=== PATIENT | male | born 2000 | race Caucasian/White ===

== ENCOUNTER 2024-08-01 02:46 | Emergency (ER) | payer BC, SELFPAY ==
[2024-08-01 02:49] VITALS: BP 148/84; PULSE 98; RESP 14; O2SAT 100
[2024-08-01] MEDS: ONDANSETRON HCL ODT 4 MG TABLET PO (03:27)
--- NOTE | 2024-08-01 04:02 | ED_ITS ---
HPI - General Adult General Chief complaint: Wound/Laceration Stated complaint: upper lip laceration Time Seen by Provider: 08/01/24 02:59 History of Present Illness HPI narrative: patient 24-year-old gentleman presents emergency department with chief complaint of facial injury. The patient was drinking this evening fell and has a lip laceration. The patient friends reported no loss of consciousness the patient does report that he has been drinking this evening but is otherwise ac ting his normal self patient reports that his tetanus is up-to-date Related Data Allergies Allergy/AdvReac Type Severity Reaction Status Date / Time No Known Allergies Allergy Verified 08/01/24 02:55 Review of Systems Review of Systems: A 10 system review of systems was completed on the patient and is negative except for what is stated in the HPI. Nursing and ancillary documentation was reviewed. Exam Narrative: GENERAL: Well-appearing, well-nourished, and in no acute distress. HEAD: Normocephalic, 1 cm laceration to the upper left there is an abrasion inside of the mouth there is no malocclusion of the teeth. EYES: PERRLA and EOMI. ENT: Nares clear, no rhinorrhea or epistaxis. Mucous membranes moist. NECK: Supple. CHEST: Clear to auscultation. No respiratory distress. HEART: Regular rate and rhythm. No murmur heard. Normal peripheral pulses. ABDOMEN: Soft, nontender, nondistended, normal active bowel sounds. EXTREMITIES: Normal range of motion. No edema. SKIN: Warm, dry, no rash. NEURO: No focal deficits. Alert and oriented x3. PSYCH: Normal mood and affect. Course Vital Signs Vital signs: Vital Signs Pulse Rate 98 08/01/24 02:49 Respiratory Rate 14 08/01/24 02:49 Blood Pressure 148/84 H 08/01/24 02:49 Pulse Oximetry 100 08/01/24 02:49 Oxygen Delivery Room Air 08/01/24 02:49 Pulse Rate 98 08/01/24 02:49 Respiratory Rate 14 08/01/24 02:49 Blood Pressure 148/84 H 08/01/24 02:49 Pulse Oximetry 100 08/01/24 02:49 Oxygen Delivery Room Air 08/01/24 02:49 Procedures Laceration Laceration 1: Date: 08/01/24 Time: 04:20 Site: lip Size (cm): 1 Description: irregular Local Anesthetic: lidocaine 1% Amount of anesthesia used (mL): 3 Pre-repair: wound explored and irrigated ====== Skin Level ====== Skin layer closed with: prolene Size (cm): 5-0 Number of sutures: 3 Technique: simple, interrupted ====== Subcutaneous Layer ====== ====== Muscle Layer ====== ====== Tendon Layer ====== Medical Decision Making Vital Signs Vital Signs: Vital Signs Pulse Rate 98 08/01/24 02:49 Respiratory Rate 14 08/01/24 02:49 Blood Pressure 148/84 H 08/01/24 02:49 Pulse Oximetry 100 08/01/24 02:49 Oxygen Delivery Room Air 08/01/24 02:49 Pulse Rate 98 08/01/24 02:49 Respiratory Rate 14 08/01/24 02:49 Blood Pressure 148/84 H 08/01/24 02:49 Pulse Oximetry 100 08/01/24 02:49 Oxygen Delivery Room Air 08/01/24 02:49 Discharge Plan Discharge Clinical Impression: Laceration, Facial laceration Patient Disposition: Home, Self-Care Condition: Stable Instructions: Antibiotic Form, Laceration (ED) Additional Instructions: you have 3 sutures in your face they should be removed in 5-7 days Follow-up/Referrals: PHYSICIAN NOT ON STAFF,NONSTAFF [Primary Care Provider] - Time of Disposition: 04:21
[2024-08-01 04:04] VITALS: TEMP 36.3
[2024-08-01 04:37] VITALS: BP 132/76; PULSE 69; RESP 16; O2SAT 100
== END 2024-08-01 04:42 | disposition home or self-care (01) ==
PROVIDERS: Emergency Provider Emergency Medicine
DX: S01.511A Laceration without foreign body of lip, initial encounter (principal); W19.XXXA Unspecified fall, initial encounter
CPT/HCPCS: 12011; 99282; A9270